=== PATIENT | female | born 1965 | race Caucasian/White ===

== ENCOUNTER 2018-12-20 14:15 | Emergency (ER) | payer OTHER ==
[~2018-12-20] VITALS: Ht 172.7 cm; Wt 106.6 kg
[2018-12-20] MEDS ORDERED: LISINOPRIL10 MG PO (14:21)
[2018-12-20] MEDS ORDERED: SYNTHROID137 MC1 PO (14:21)
[2018-12-20 14:45] LABS: ABSOLUTE EOSINOPHILS 0.1 thou/uL (0.0-0.7); ABSOLUTE MONOCYTES 0.7 thou/uL (0.0-1.2); ABSOLUTE NEUTROPHILS 4.4 thou/uL (1.6-8.1); BASOPHILS 0.5 %; HEMATOCRIT 38.2 % (37.0-47.0); HEMOGLOBIN 12.6 gm/dL (12.0-15.0); LYMPHOCYTES 27.6 %; MCH 28.6 pg (26.0-34.0); MCV 86.7 fL (80.0-100.0); MONOCYTES 10.1 %; MPV 7.1 fl. (7.2-11.1); NUCLEATED RBCS 0 /100WBC; PLATELET COUNT* 324 thou/uL (150-400); POLYS 60.8 %; RBC 4.41 mil/uL (4.20-5.00); RDW-CV 15.9 % (10.5-14.5); WBC 7.2 thou/uL (4.0-11.0)
[2018-12-20 15:04] LABS: ANION GAP 9 mmol/L (7-16); BUN 12 mg/dL (7-18); CHLORIDE 104 mmol/L (98-107); CO2 28 mmol/L (21-32); GLUCOSE 104 mg/dL (70-99); POTASSIUM 3.8 mmol/L (3.5-5.1); SODIUM 141 mmol/L (136-145); TROPONIN-I LEVEL <0.06 ng/mL (<0.06)
[2018-12-20 15:05] LABS: ALBUMIN 3.8 g/dL (3.4-5.0); ALKALINE PHOSPHATASE 96 U/L (46-116); LIPASE 74 U/L (73-393); MAGNESIUM 1.9 mg/dL (1.8-2.4); NT-PRO BRAIN NAT PEPTIDE 17 pg/mL (<300); SGOT 12 U/L (15-37); SGPT 16 U/L (30-65); TOTAL BILIRUBIN 0.5 mg/dL (<0.1-1.0)
[2018-12-20] MEDS ORDERED: HYDROCODONE-AP1 EAC6 PO (15:15)
[2018-12-20 15:43] VITALS: BP 130/73
--- NOTE | 2018-12-20 16:00 | EKG ---
[place] [address] ELECTROCARDIOGRAM REPORT Name: NALLELY MCKINNEY Room: [facility]#: [id number] Admission: 12/20/18 Attend Phys: Discharge: 12/20/18 Date of : 61 Report #: [id number] THIS REPORT FOR: //name// [facility] ED Test Date: 2018-12-20 Test Time: 14:20:16 Pat Name: NALLELY MCKINNEY Department: Room: Gender: F [employer] Founder & Ceo: Allyssa STARK : 1965 Requested By: Gurdeep Foster Order Number: [id number] MD: Frank Pickering Measurements Intervals [place] Rate: 92 P: 38 DC: 150 QRS: 6 QRSD: 91 T: 29 QT: 361 QTc: 447 Interpretive Statements Sinus rhythm Abnormal R-wave progression, early transition Baseline wander in lead(s) V5,V6 No previous ECG available for comparison Electronically Signed On 12-20-2018 16:00:42 CDT by Frank Pickering [email or web address] <ELECTRONICALLY SIGNED> By: Frank Pickering MD, [facility] 12/20/18 1600 1420 1420 Frank Pickering MD, FAC /EPI
== END 2018-12-20 15:44 | disposition home or self-care (01) ==
LOC: M.ERS 14:15
PROVIDERS: Emergency Medicine Emergency Medical Services
DX: M94.0 Chondrocostal junction syndrome [Tietze] (principal); I10 Essential (primary) hypertension; E03.9 Hypothyroidism, unspecified

== ENCOUNTER 2019-11-18 17:25 | Emergency (ER) | payer OTHER ==
[~2019-11-18] VITALS: Ht 172.7 cm; Wt 99.8 kg
[~2019-11-18 17:25] MED LIST: HYDROCODONE-AP1 EAC6 PO; LISINOPRIL10 MG PO; SYNTHROID137 MC1 PO
[2019-11-18 18:17] LABS: INFLUENZA A ANTIGEN Negative (Negative); INFLUENZA B ANTIGEN Negative (Negative)
[2019-11-18 18:28] LABS: HEMATOCRIT 34.7 % (37.0-47.0); HEMOGLOBIN 11.8 gm/dL (12.0-15.0); MCH 26.9 pg (26.0-34.0); MCV 79.3 fL (80.0-100.0); MPV 7.4 fl. (7.2-11.1); NUCLEATED RBCS 0 /100WBC; PLATELET COUNT* 348 thou/uL (150-400); RBC 4.38 mil/uL (4.20-5.00); RDW-CV 15.9 % (10.5-14.5); WBC 13.7 thou/uL (4.0-11.0)
[2019-11-18 18:50] LABS: CALCIUM 7.7 mg/dL (8.5-10.1); POTASSIUM 3.6 mmol/L (3.5-5.1)
[2019-11-18 18:54] LABS: ALBUMIN 3.1 g/dL (3.4-5.0); TOTAL BILIRUBIN 0.9 mg/dL (<0.1-1.0); TOTAL PROTEIN 7.8 g/dL (6.4-8.2)
[2019-11-18 18:57] LABS: ABSOLUTE LYMPHOCYTES 0.5 thou/uL (0.8-5.3); ABSOLUTE MONOCYTES 0.7 thou/uL (0.0-1.2); ABSOLUTE NEUTROPHILS 12.5 thou/uL (1.6-8.1)
[2019-11-18 18:58] LABS: ANISOCYTOSIS Occasional; PLATELET ESTIMATE ADEQUATE
[2019-11-18] MEDS ORDERED: TYLENOL WITH CO1 TA1 PO (20:50)
[2019-11-18] MEDS ORDERED: TESSALON PERLE100 MG PO (20:50)
[2019-11-18] MEDS ORDERED: ZPAK PO (20:50)
[2019-11-18] MEDS ORDERED: PROAIR HFA8.5 GM INH (20:50)
[2019-11-18 21:42] VITALS: BP 146/86
--- NOTE | 2019-11-19 09:36 | EKG ---
[place] [address] ELECTROCARDIOGRAM REPORT Name: NALLELY MCKINNEY Room: [facility]#: [id number] Admission: 11/18/19 Attend Phys: Discharge: 11/18/19 Date of : 61 Date of Service: 11/18/19 183 Report #: [id number] THIS REPORT FOR: //name// [facility] ED Test Date: 2019-11-18 Test Time: 18:38:51 Pat Name: NALLELY MCKINNEY Department: Room: Gender: F Tool Liaison: CCD : 1965 Requested By: Rosibel Davis Order Number: [id number] MD: Caden Alejandre Measurements Intervals [place] Rate: 103 P: 24 [place]: 148 QRS: 10 QRSD: 86 T: -15 QT: 355 QTc: 465 Interpretive Statements Sinus tachycardia Nonspecific T abnormalities, anterior leads Baseline wander in lead(s) V2,V5,V6 Compared to ECG 12/20/2018 14:20:16 T-wave abnormality now present Sinus rhythm no longer present Electronically Signed On 11-19-2019 9:35:42 CDT by Caden Alejandre [email or web address] <ELECTRONICALLY SIGNED> By: Caden Alejandre MD, FAC 11/19/19 0935 1838 1838 Caden Alejandre MD, FAC /EPI
== END 2019-11-18 21:42 | disposition home or self-care (01) ==
LOC: M.ERS 17:25
PROVIDERS: Nurse Practitioner Family; Physician Assistant
DX: J18.8 Other pneumonia, unspecified organism (principal); I10 Essential (primary) hypertension; E03.9 Hypothyroidism, unspecified; Z90.49 Acquired absence of other specified parts of digestive tract; Z98.890 Other specified postprocedural states

== ENCOUNTER 2020-02-03 18:14 | Emergency (ER) | payer OTHER ==
[~2020-02-03] VITALS: Ht 175.3 cm; Wt 99.8 kg
[~2020-02-03 18:14] MED LIST changes: +PROAIR HFA8.5 GM INH; +TESSALON PERLE100 MG PO; +TYLENOL WITH CO1 TA1 PO; +ZPAK PO
[2020-02-03] MEDS ORDERED: CIPRO500 M1 PO (18:21)
[2020-02-03] MEDS ORDERED: [UNRECOGNIZED DRUG - OTHER] (18:21)
[2020-02-03 19:25] LABS: ABSOLUTE BASOPHILS 0.1 thou/uL (0.0-0.2); ABSOLUTE EOSINOPHILS 0.2 thou/uL (0.0-0.7); ABSOLUTE LYMPHOCYTES 1.8 thou/uL (0.8-5.3); ABSOLUTE MONOCYTES 0.8 thou/uL (0.0-1.2); ABSOLUTE NEUTROPHILS 5.3 thou/uL (1.6-8.1); BASOPHILS 0.7 %; EOSINOPHILS 2.2 %; HEMATOCRIT 37.5 % (37.0-47.0); HEMOGLOBIN 12.4 gm/dL (12.0-15.0); LYMPHOCYTES 22.1 %; MCH 27.3 pg (26.0-34.0); MCHC 33.1 g/dL (28.0-37.0); MCV 82.5 fL (80.0-100.0); MONOCYTES 9.8 %; MPV 7.9 fl. (7.2-11.1); NUCLEATED RBCS 0 /100WBC; PLATELET COUNT* 262 thou/uL (150-400); POLYS 65.2 %; RBC 4.55 mil/uL (4.20-5.00); WBC 8.1 thou/uL (4.0-11.0)
[2020-02-03 19:37] LABS: PROTIME 10.7 Seconds (9.20-11.50)
[2020-02-03 19:38] LABS: CALCIUM 8.8 mg/dL (8.5-10.1)
[2020-02-03 19:53] LABS: ALBUMIN 3.8 g/dL (3.4-5.0); TOTAL BILIRUBIN 0.8 mg/dL (<0.1-1.0)
[2020-02-03 20:37] LABS: URINE BILIRUBIN NEGATIVE (Negative); URINE BLOOD NEGATIVE (Negative); URINE CLARITY CLEAR; URINE COLOR YELLOW; URINE GLUCOSE-RANDOM NEGATIVE (Negative); URINE KETONES NEGATIVE (Negative); URINE LEUKOCYTES-REFLEX NEGATIVE (Negative); URINE NITRITE-REFLEX NEGATIVE (Negative); URINE PROTEIN NEGATIVE (Negative); URINE SPECIFIC GRAVITY 1.015 (1.005-1.030); URINE UROBILINOGEN 0.2 E.U./dl (0.2-1.0)
[2020-02-03 22:42] VITALS: BP 129/79
--- NOTE | 2020-02-04 15:26 | EKG ---
[place] [address] ELECTROCARDIOGRAM REPORT Name: NALLELY MCKINNEY Room: [facility]#: [id number] Admission: 02/03/20 Attend Phys: Discharge: 02/03/20 Date of : 61 Date of Service: 02/03/20 182 Report #: [id number] THIS REPORT FOR: //name// [facility] ED Test Date: 2020-02-03 Test Time: 18:25:13 Pat Name: NALLELY MCKINNEY Department: Room: Gender: F Skills Instructor: CHEN : 1965 Requested By: Kim Martino Order Number: [id number] MD: Frank Pickering Measurements Intervals [place] Rate: 92 P: 35 SD: 148 QRS: 20 QRSD: 69 T: -10 QT: 432 QTc: 535 Interpretive Statements Sinus rhythm Borderline repolarization abnormality Prolonged QT interval Compared to ECG 11/18/2019 18:38:51 Prolonged QT interval now present Sinus tachycardia no longer present T-wave abnormality no longer present Electronically Signed On 02-04-2020 15:24:57 CDT by Frank Pickering [email or web address] <ELECTRONICALLY SIGNED> By: Frank Pickering MD, [facility] 02/04/20 1524 1825 1825 Frank Pickering MD, [facility] /EPI
== END 2020-02-03 22:43 | disposition home or self-care (01) ==
LOC: M.ERS 18:14
PROVIDERS: Emergency Medicine
DX: R07.89 Other chest pain (principal); I10 Essential (primary) hypertension; E03.9 Hypothyroidism, unspecified; Z90.49 Acquired absence of other specified parts of digestive tract; Z98.890 Other specified postprocedural states

== ENCOUNTER → 2020-03-04 | Outpatient (CLI) | payer OTHER ==
[~2020-03-04] MED LIST changes: +CIPRO500 M1 PO; +[UNRECOGNIZED DRUG - OTHER]
== END ==
LOC: M.CT 03-02 07:30
PROVIDERS: ATTEND Family Medicine
DX: K42.0 Umbilical hernia with obstruction, without gangrene (principal); K56.41 Fecal impaction; R91.1 Solitary pulmonary nodule; M79.89 Other specified soft tissue disorders; Z90.49 Acquired absence of other specified parts of digestive tract

== ENCOUNTER 2020-10-21 01:30 | Emergency (ER) | payer OTHER ==
[~2020-10-21] VITALS: Ht 172.7 cm; Wt 105.7 kg
[2020-10-21 02:03] LABS: ABSOLUTE BASOPHILS 0.1 thou/uL (0.0-0.2); ABSOLUTE EOSINOPHILS 0.1 thou/uL (0.0-0.7); ABSOLUTE LYMPHOCYTES 1.7 thou/uL (0.8-5.3); ABSOLUTE MONOCYTES 0.7 thou/uL (0.0-1.2); ABSOLUTE NEUTROPHILS 5.4 thou/uL (1.6-8.1); BASOPHILS 0.8 %; EOSINOPHILS 1.4 %; HEMOGLOBIN 12.2 gm/dL (12.0-15.0); LYMPHOCYTES 21.2 %; MCHC 32.2 g/dL (28.0-37.0); MCV 80.7 fL (80.0-100.0); MONOCYTES 9.2 %; MPV 7.9 fl. (7.2-11.1); NUCLEATED RBCS 0 /100WBC; PLATELET COUNT* 265 thou/uL (150-400); POLYS 67.4 %; RBC 4.71 mil/uL (4.20-5.00); WBC 7.9 thou/uL (4.0-11.0)
[2020-10-21 02:08] LABS: CALCIUM 9.1 mg/dL (8.5-10.1); POTASSIUM 3.7 mmol/L (3.5-5.1)
[2020-10-21 02:12] LABS: APTT 25.6 Seconds (25.0-31.3); PROTIME 10.2 Seconds (9.20-11.50)
[2020-10-21 02:14] LABS: ALBUMIN 3.8 g/dL (3.4-5.0); TOTAL BILIRUBIN 0.4 mg/dL (<0.1-1.0); TOTAL PROTEIN 7.5 g/dL (6.4-8.2)
[2020-10-21 04:24] VITALS: BP 115/64
--- NOTE | 2020-10-21 15:32 | EKG ---
[place] [address] ELECTROCARDIOGRAM REPORT Name: NALLELY MCKINNEY Room: [facility]#: [id number] Admission: 10/21/20 Attend Phys: Discharge: 10/21/20 Date of : 61 Date of Service: 10/21/20 0135 Report #: [id number] THIS REPORT FOR: //name// [facility] ED Test Date: 2020-10-21 Test Time: 01:35:39 Pat Name: NALLELY MCKINNEY Department: Room: Gender: F [employer]: DALILA : 1965 Requested By: Onelia Hill Order Number: [id number] MD: Jose Paredes Measurements Intervals [place] Rate: 85 P: 35 [place]: 155 QRS: 17 QRSD: 94 T: 24 QT: 380 QTc: 452 Interpretive Statements Sinus rhythm Abnormal R-wave progression, early transition Compared to ECG 02/03/2020 18:25:13 Prolonged QT interval no longer present Electronically Signed On 10-21-2020 15:32:10 OIL EXPLORATION ENGINEER by Jose Paredes [email or web address] <ELECTRONICALLY SIGNED> By: Jose Paredes MD, [facility] 10/21/20 1532 0135 0135 Jose Paredes MD, [facility] /EPI
== END 2020-10-21 04:24 | disposition home or self-care (01) ==
LOC: M.ERS 01:30
PROVIDERS: Personal Emergency Response Attendant
DX: I10 Essential (primary) hypertension (principal); E03.9 Hypothyroidism, unspecified; Z98.890 Other specified postprocedural states; Z90.49 Acquired absence of other specified parts of digestive tract

== ENCOUNTER → 2021-05-21 | Outpatient (CLI) | payer OTHER ==
[2021-05-21 10:18] LABS: ABSOLUTE EOSINOPHILS 0.1 thou/uL (0.0-0.7); ABSOLUTE LYMPHOCYTES 1.2 thou/uL (0.8-5.3); ABSOLUTE MONOCYTES 0.6 thou/uL (0.0-1.2); ABSOLUTE NEUTROPHILS 3.6 thou/uL (1.6-8.1); BASOPHILS 0.6 %; EOSINOPHILS 2.2 %; HEMOGLOBIN 12.4 gm/dL (12.0-15.0); MCHC 32.6 g/dL (28.0-37.0); MCV 79.8 fL (80.0-100.0); MONOCYTES 10.2 %; MPV 7.5 fl. (7.2-11.1); NUCLEATED RBCS 0 /100WBC; PLATELET COUNT* 292 thou/uL (150-400); RBC 4.76 mil/uL (4.20-5.00); RDW-CV 15.3 % (10.5-14.5); WBC 5.6 thou/uL (4.0-11.0)
[2021-05-21 11:08] LABS: ALBUMIN 3.9 g/dL (3.4-5.0); ALKALINE PHOSPHATASE 78 U/L (46-116); ANION GAP 8 mmol/L (7-16); BUN 12 mg/dL (7-18); CALCIUM 8.8 mg/dL (8.5-10.1); CHLORIDE 105 mmol/L (98-107); CHOLESTEROL 153 mg/dL (<200); CO2 26 mmol/L (21-32); GLUCOSE 95 mg/dL (70-99); HDL CHOLESTEROL 41 mg/dL (>40); LDL CHOLESTEROL 96 mg/dL (<100); POTASSIUM 3.8 mmol/L (3.5-5.1); SGOT 16 U/L (15-37); SGPT 23 U/L (30-65); SODIUM 139 mmol/L (136-145); TC:HDL 3.7 Ratio (Not establshd); TOTAL BILIRUBIN 0.6 mg/dL (<0.1-1.0); TOTAL PROTEIN 7.5 g/dL (6.4-8.2); TRIGLYCERIDE 82 mg/dL (<150); VLDL 16 mg/dL (<40)
[2021-05-21 11:12] LABS: SERUM ASSESSMENT Clear
[2021-05-21 11:38] LABS: ESR (SEDRATE) 9 mm/hr (0-30)
[2021-05-21 21:06] LABS: THYROID PEROXIDASE (TPO) AB > 600 IU/mL (0-34)
== END ==
LOC: M.LAB 09:35
PROVIDERS: ATTEND Family Medicine
DX: Z12.31 Encounter for screening mammogram for malignant neoplasm of breast (principal); M85.88 Other specified disorders of bone density and structure, other site; I10 Essential (primary) hypertension; E53.8 Deficiency of other specified B group vitamins; E03.9 Hypothyroidism, unspecified; R25.1 Tremor, unspecified; R07.89 Other chest pain; Z78.0 Asymptomatic menopausal state

== ENCOUNTER → 2021-06-09 | Outpatient (CLI) | payer OTHER | LOC: M.ULTRA 07:06 | PROVIDERS: ATTEND Family Medicine | DX: E04.2 Nontoxic multinodular goiter (principal); E03.9 Hypothyroidism, unspecified ==

== ENCOUNTER → 2021-06-16 | Outpatient (CLI) | payer OTHER | LOC: M.LAB 06-15 17:05 | PROVIDERS: ATTEND Family Medicine | DX: E53.8 Deficiency of other specified B group vitamins (principal) ==

== ENCOUNTER → 2021-07-28 | Outpatient (CLI) | payer OTHER | LOC: M.LAB 12:47 | PROVIDERS: ATTEND Internal Medicine Gastroenterology | DX: Z01.812 Encounter for preprocedural laboratory examination (principal); E03.9 Hypothyroidism, unspecified; Z20.822 Contact with and (suspected) exposure to COVID-19 ==